=== PATIENT | male | born 1995 | race Caucasian/White ===

== ENCOUNTER 2023-10-27 21:12 | Emergency (ER) | payer MEDICAID, SELFPAY ==
[2023-10-27 21:14] VITALS: BP 122/101; PULSE 91; RESP 18; TEMP 36.6; O2SAT 97; BMI 25.1
--- NOTE | 2023-10-27 21:19 | PC.NURSE ---
Patient was dressed out of street clothes and placed in green paper scrubs. All belongings removed, placed in plastic bags and labeled with patient label.
--- NOTE | 2023-10-27 21:20 | PC.NURSE ---
Suicide precautions set in place: patient placed in cleared room, PSA present with patient, patient dressed out, and all belongings removed from patient.
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
[2023-10-27 21:46] LABS: Add Urine Microscopic? YES; Bacteria Urine TRACE /hpf; Bilirubin Urine Neg (Negative); Blood Urine Neg (Negative); Glucose Urine UA Norm (Normal); Ketones Urine Negative (Negative); Leukocyte Esterase Urine Negative (Negative); Mucus Urine 2+ /hpf; Nitrate Urine Negative (Negative); Protein Urine Trace (Negative); Urine Appearance Clear (CLEAR); Urine Color Yellow (Yellow); Urobilinogen Urine 1 mg/dL (Negative); pH Urine 5 (5-7)
[2023-10-27 21:47] LABS: Add Urine Culture? No
[2023-10-27 21:48] LABS: Amphetamines Screen Urine Positive (Negative); Barbiturates Screen Urine Negative (Negative); Benzodiazepines Screen Urine Positive (Negative); Cocaine Screen Urine Negative (Negative); Opiate Screen Urine Negative (Negative); PCP Screen Urine Negative (Negative); THC Screen Urine Positive (Negative)
[2023-10-27 21:52] LABS: Basophils % 0.4 %; Eosinophils % 0.6 %; Hematocrit 39.2 % (37-53); Lymphocytes # 1.5 10^3/uL (0.8-4.8); Lymphocytes % 30.3 %; Mean Corpuscular HGB Conc 33.7 g/dL (30-55); Mean Corpuscular Hemoglobin 29.9 pg (27-33); Mean Corpuscular Volume 88.9 fl (82-101); Mean Platelet Volume 8.4 fL (7.4-10.4); Monocytes # 0.4 10^3/uL (0.2-0.9); Monocytes % 7.4 %; Neutrophils # 2.99 10^3/uL (1.8-7.7); Neutrophils % 61.1 %; Nucleated Red Blood Cells % 0 %; Platelet Count 240 10^3/cmm (157-399); Red Blood Count 4.41 10^6/uL (3.85-5.65); Red Cell Distribution Width 12.4 % (12.1-15.1); White Blood Count 4.89 10^3/uL (3.29-11.43)
[2023-10-27 21:59] LABS: Alanine Aminotransferase 29 U/L (0-41); Albumin Level 4.3 g/dL (3.5-5.2); Alkaline Phosphatase 61 U/L (40-130); Anion Gap 17.8 (5-19); Aspartate Amino Transferase 35 U/L (0-40); Blood Urea Nitrogen 13 mg/dL (6-20); Calcium 8.5 mg/dL (8.5-10.5); Carbon Dioxide 22 mmol/L (22-29); Chloride 107 mmol/L (98-107); Globulin 2.3 g/dL (1.3-4.6); Glomerular Filtration Rate 135.3 mL/min (90-130); Glucose 108 mg/dL (65-115); Osmolality Calculated 297 mOsm/kg (285-295); Potassium 3.8 mmol/L (3.5-5.1); Salicylate 2.3 mg/dL (3-10); Sodium 143 mmol/L (136-145); Total Bilirubin 0.7 mg/dL (0.15-1.2); Total Protein 6.6 g/dL (6.6-8.7)
[2023-10-27 22:01] LABS: Acetaminophen < 5.0 ug/mL (10-30); Alcohol Level < 10 mg/dL (0-10)
--- NOTE | 2023-10-27 22:06 | PC.NURSE ---
Patient stated to this nurse that he is not suicidal and that he wants to get ahold of Beth. Patient then asked if he could leave. All of this information was relayed to Dr Dill, who told this nurse that unless [facility] wrote out an affidavit to put patient on 96 hour hold, then patient would likely be discharged home.
--- NOTE | 2023-10-27 22:10 | PC.NURSE ---
upon arrival the pt continued to ask for a phone to contact his girlfriend Beth. This nurse informed the pt that he would not be allowed to use the phone to call her. D/T the officer bringing him in for help and stating that if he went back to her house he would be arrested. The pt then wanted to call Miah who did not answer the phone.
== END 2023-10-27 22:26 | disposition home or self-care (01) ==
PROVIDERS: Emergency Provider Emergency Medicine
DX: F19.10 Other psychoactive substance abuse, uncomplicated (principal)
CPT/HCPCS: 80053; 80306; 80307; 81001; 85025; 99283

== ENCOUNTER 2024-03-07 20:02 | Emergency (ER) | payer MEDICAID, SELFPAY ==
[2024-03-07 20:04] VITALS: BP 138/100; PULSE 83; RESP 16; TEMP 36.4; O2SAT 98; BMI 25.1
--- NOTE | 2024-03-07 20:08 | CTR_ITS ---
PROCEDURE INFORMATION: Exam: CT Lumbar Spine Without Contrast Exam date and time: 03/07/2024 8:32 PM Age: 29 years old Clinical indication: Injury or trauma; Fall; Additional info: Back pain TECHNIQUE: Imaging protocol: Computed tomography of the lumbar spine without contrast. Radiation optimization: All CT scans at this facility use at least one of these dose optimization techniques: automated exposure control; mA and/or kV adjustment per patient size (includes targeted exams where dose is matched to clinical indication); or iterative reconstruction. COMPARISON: No relevant prior studies available. RADIATION DOSE METRICS: Total DLP (mGy-cm): 591 FINDINGS: Bones/joints: No acute fracture. Normal alignment. No significant disc bulge or herniation. No severe spinal canal stenosis. No significant neural foraminal narrowing. Soft tissues: Unremarkable. CT/CT lumbar spine wo con* [id number] IMPRESSION: No acute findings.
[2024-03-07 20:14] VITALS: RESP 20
[2024-03-07] MEDS: cyclobenzaprine 10 mg Tablet PO (20:14)
[2024-03-07] MEDS: HYDROmorphone 1 mg/mL INJ 1 mL IVP (20:14)
[2024-03-07] MEDS: dexamethasone 10 mg/mL INJ IVP (20:15)
--- NOTE | 2024-03-07 20:15 | ED_ITS ---
HPI - Fall General: Chief Complaint: Fall Stated Complaint: fall Time Seen by Provider: 03/07/24 20:04 Source: patient Mode of arrival: ambulatory Limitations: no limitations History of Present Illness: 29-year-old male he states he has a hist ory of chronic back pain states he is planning his dog and felt a pop in his back and fell and having worsening back pain since then he states he feels like he is having spasms denies any bowel or bladder incontinence he is able ambulate stated is painful to ambulate rates the pain a 7 out of 10 currently. No history of back surgeries Associated symptoms-after fall: Denies abdominal pain, chest pain, headache(s) or neck pain Review of Systems Const: Denies: fever(s), chills, body aches or change in appetite ENMT: Denies: throat pain or dental pain Card: Denies: chest pain Resp: Denies: dyspnea GI: Denies: abdominal pain, nausea, vomiting or diarrhea : Denies: difficulty urinating Musc: Reports: back pain; Denies: neck pain Skin/Breast: Denies: rash Neuro: Denies: headache(s) Physical Exam Const: COMMON NORMALS: no acute distress, patient oriented x3 and healthy appearing HENMT: COMMON NORMALS: normocephalic and atraumatic HEAD & SCALP: normocephalic and atraumatic Eye: COMMON NORMALS: Equal, round and reactive pupils present and EOMs intact bilaterally PUPIL: Yes Equal, round and reactive pupils present Neck/C-Spine: COMMON NORMALS: full ROM and supple Chest: COMMONS NORMALS: normal inspection of the chest Resp: COMMON NORMALS: normal respiratory effort, No retractions, No use of accessory muscles and clear to auscultation bilaterally AUSCULTATION: clear to auscultation bilaterally Cardio: COMMON NORMALS: regular rate, regular rhythm and No murmurs present (Cardio) RATE: regular rate RHYTHM: regular rhythm Back/Pelvis: OTHER: Paraspinal tenderness over the lumbar spine no midline tenderness no saddle anesthesia Extremity: COMMON NORMALS: normal to inspection and full ROM Neuro: COMMON NORMALS: patient oriented x3, moves all extremities and no focal motor deficits Psych: COMMON NORMALS: mental status grossly normal, Normal thought process present and cooperative THOUGHT PROCESS: Normal thought process present Skin: COMMON NORMALS: no rashes or lesions noted and no wounds GENERAL SKIN EXAM: no rashes or lesions noted Course Vital Signs: Vital signs: Vital Signs Temperature 97.5 F L 03/07/24 20:04 Pulse Rate 83 03/07/24 20:04 Respiratory Rate 20 H 03/07/24 20:14 Blood Pressure 138/100 03/07/24 20:04 Pulse Oximetry 98 03/07/24 20:04 Oxygen Delivery Me thod Room Air 03/07/24 20:04 MDM - Fall Medical Decision Making Patient presents here with lumbar strain his back pain he is much improved after meds he has no signs of cord compression or epidural abscess CT scans normal we will place him on Naprosyn Robaxin he is to follow-up with Dr. Verdugo return if worsening he understands agrees plan Medical Records I reviewed the patient's medical records. Lab Data Radiology Impressions Lumbar Spine CT 03/07/24 20:08 IMPRESSION: No acute findings. All radiology interpretation(s) finalized by discharge Discharge Plan Discharge Patient Disposition: Home Clinical Impression: Lumbar strain Qualifiers: Encounter type: initial encounter Qualified Code(s): S39.012A - Strain of muscle, fascia and tendon of lower back, initial encounter Condition: Stable Prescriptions: New methocarbamol 750 mg tablet 750 mg PO Q6H PRN (Reason: spasms) Qty: 20 0RF Naprosyn 500 mg tablet 500 mg PO BID PRN (Reason: pain) Qty: 20 0RF Discharge Orders: Discharge ED (Routine); Ordered 03/07/24 Ordered By: Kei Garvin Referrals: Shayne Verdugo DO [Physician] - 1-3 days Discharge Diet: Advance as tolerated Discharge Activity: Resume usual activity Patient Instructions: Low Back Strain (ED) Coding Level of Care Code ED Oral And Maxillofacial Surgery Resident for Ashwing Rosie
--- NOTE | 2024-03-09 07:55 | DCPLANNER ---
messaged ortho for er f/u
== END 2024-03-07 22:22 | disposition home or self-care (01) ==
PROVIDERS: Emergency Provider Emergency Medicine
DX: S39.012A Strain of muscle, fascia and tendon of lower back, initial encounter (principal); W19.XXXA Unspecified fall, initial encounter
CPT/HCPCS: 72131; 96374; 96375; 99284; J1100; J1170

== ENCOUNTER 2024-03-19 16:41 | Inpatient (IN) | payer MEDICAID, SELFPAY ==
[2024-03-19] MEDS: LORazepam 1 mg Tablet PO (17:35)
[2024-03-19 18:17] LABS: Basophils % 0.6 %; Eosinophils # 0.2 10^3/uL (0.0-0.8); Eosinophils % 3.4 %; Hematocrit 38.2 % (37-53); Lymphocytes # 2.5 10^3/uL (0.8-4.8); Lymphocytes % 47.8 %; Mean Corpuscular HGB Conc 33.8 g/dL (30-55); Mean Corpuscular Hemoglobin 30.6 pg (27-33); Mean Corpuscular Volume 90.7 fl (82-101); Mean Platelet Volume 8.6 fL (7.4-10.4); Monocytes # 0.4 10^3/uL (0.2-0.9); Monocytes % 6.6 %; Neutrophils % 41.4 %; Nucleated Red Blood Cells % 0 %; Platelet Count 211 10^3/cmm (157-399); Red Blood Count 4.21 10^6/uL (3.85-5.65); White Blood Count 5.31 10^3/uL (3.29-11.43)
[2024-03-19 18:24] VITALS: BP 103/63; PULSE 82; RESP 16; O2SAT 94
[2024-03-19 18:36] LABS: Acetaminophen < 5.0 ug/mL (10-30); Alanine Aminotransferase 18 U/L (0-41); Albumin Level 4.5 g/dL (3.5-5.2); Alcohol Level 39 mg/dL (0-10); Alkaline Phosphatase 50 U/L (40-130); Anion Gap 12.6 (5-19); Aspartate Amino Transferase 15 U/L (0-40); Blood Urea Nitrogen 11 mg/dL (6-20); Carbon Dioxide 27 mmol/L (22-29); Chloride 107 mmol/L (98-107); Creatinine Clr Calc Pharmacy 162.8098; Globulin 2.1 g/dL (1.3-4.6); Glomerular Filtration Rate 134.3 mL/min (90-130); Glucose 88 mg/dL (65-115); Osmolality Calculated 295 mOsm/kg (285-295); Potassium 3.6 mmol/L (3.5-5.1); Salicylate < 0.3 mg/dL (3-10); Sodium 143 mmol/L (136-145); Total Bilirubin 0.6 mg/dL (0.15-1.2); Total Protein 6.6 g/dL (6.6-8.7)
[2024-03-19 18:41] LABS: Amphetamines Screen Urine Positive (Negative); Barbiturates Screen Urine Negative (Negative); Benzodiazepines Screen Urine Negative (Negative); Cocaine Screen Urine Negative (Negative); Opiate Screen Urine Negative (Negative); PCP Screen Urine Negative (Negative); THC Screen Urine Positive (Negative)
--- NOTE | 2024-03-19 18:56 | W.ED.PSYCHS ---
HPI - Psych General: Chief Complaint: Psychiatric Symptoms Stated Complaint: SI Time Seen by Provider: 03/19/24 17:14 Source: patient Mode of arrival: ambulatory Limitations: no limitations History of Present Illness: Patient is a 29-year-old male presenting to the emergency department reporting suicidal ideations that he states he has had for multiple years but are worsening recently. When I ask him if he has a specific plan, he states I am at a point where I would never do anything so I have not actually thought of a plan, just feel like not being alive. He does note that he used to be on medications for many years, however has not been for the past 6 months as he was prescribed those in [place]. He states he was urged to come in by girlfriend today for refill of his medications. At this time he reports that he is extremely anxious, when I ask him why he will not answer. Ultimately he is not the best historian and does not provide much useful history. He does deny any homicidal ideations or any hallucinations at this time. He does not report to me any drug use or significant alcohol use. No specific recent stressful event is reported at this time. He becomes very anxious on further questioning and request something at this time. MD complaint: suicidal ideation Onset (ago): year(s) Duration: getting worse History of same: Yes Relieving factors: none Exacerbating factors: none Associated symptoms: Reports depression and suicidal ideation; Deny auditory hallucinations, visual hallucinations or homicidal ideation Treatments prior to arrival: none If self harm: admits thoughts of self harm Review of Systems General: Reports: 10 or more systems reviewed and unremarkable except in HPI and below Const: Denies: fever(s), chills or fatigue Eyes: Denies: change in vision ENMT: Denies: throat pain, ear or mastoid pain or nasal discharge Card: Denies: chest pain, palpitations, swelling of feet/ankles or lightheadedness Resp: Denies: dyspnea, productive cough or wheezing GI: Denies: abdominal pain, nausea, vomiting, diarrhea or constipation : Denies: flank pain, difficulty urinating, dysuria or urinary frequency Musc: Denies: neck pain, back pain or joint pain Skin/Breast: Denies: rash Neuro: Denies: headache(s), numbness in extremities or weakness in extremities Psych: Reports: anxiety, depression and suicidal ideation; Denies: visual hallucinations, auditory hallucinations, tactile hallucinations or homicidal ideation Physical Exam Const: COMMON NORMALS: no acute distress, patient oriented x3 and no limitations GENERAL APPEARANCE: cooperative, comfortable and well developed ORIENTATION/CONSCIOUSNESS: Yes awake, Yes oriented to person, Yes oriented to place and Yes oriented to time HENMT: COMMON NORMALS: normocephalic, atraumatic and hearing grossly normal bilaterally HEAD & SCALP: normocephalic and atraumatic Eye: COMMON NORMALS: Equal, round and reactive pupils present, EOMs intact bilaterally and conjunctivae normal CONJUNCTIVA: Yes conjunctivae normal PUPIL: Yes Equal, round and reactive pupils present Neck/C-Spine: COMMON NORMALS: full ROM, supple and no JVD Resp: COMMON NORMALS: normal respiratory effort, No retractions, No use of accessory muscles and clear to auscultation bilaterally AUSCULTATION: clear to auscultation bilaterally Cardio: COMMON NORMALS: no JVD, regular rate, regular rhythm, No clicks present (Cardio), No murmurs present (Cardio) and No rub (Cardio) RATE: regular rate RHYTHM: regular rhythm GI: COMMON NORMALS: Normal to inspection, nondistended, normoactive bowel sounds present, Soft to palpation and non-tender AUSCULTATION: Yes normoactive bowel sounds PALPATION: Yes Soft to palpation RECTAL EXAM: Yes deferred Extremity: COMMON NORMALS: normal to inspection, full ROM and capillary refill normal Neuro: COMMON NORMALS: patient oriented x3, moves all extremities, no focal motor deficits and no sensory deficits noted SENSORIUM/ORIENTATION: Yes oriented to person, Yes oriented to place and Yes oriented to time Psych: COMMON NORMALS: Normal thought process present APPEARANCE: Yes grossly normal ATTITUDE: Yes agitated ACTIVITY/MOTOR BEHAVIOR: Yes psychomotor agitation SPEECH: Yes minimal MOOD & AFFECT: Yes anxious and Yes irritable THOUGHT PROCESS: Normal thought process present THOUGHT CONTENT: Yes Suicidality present, No Homicidality present and No Hallucination(s) present ATTENTION/CONCENTRATION: Yes attention grossly intact Skin: COMMON NORMALS: no rashes or lesions noted GENERAL SKIN EXAM: no rashes or lesions noted Course Vital Signs: Vital signs: Vital Signs Pulse Rate 82 03/19/24 18:24 Respiratory Rate 16 03/19/24 18:24 Blood Pressure 103/63 03/19/24 18:24 Pulse Oximetry 94 03/19/24 18:24 MDM - Psych Medical Decision Making Patient arrived for suicidal ideations, reportedly had issues with this for a while and has been out of meds for 6 months. Cleared medically and patient is excepted to neuropsychiatric unit by Dr. Levin. Lab Data 03/19/24 18:02 03/19/24 18:02 Laboratory Results WBC 5.31 10^3/uL (3.29-11.43) 03/19/24 18:02 RBC 4.21 10^6/uL (3.85-5.65) 03/19/24 18:02 Hgb 12.90 g/dL (11.27-16.99) 03/19/24 18:02 Hct 38.2 % (37-53) 03/19/24 18:02 MCV 90.7 fl (82-101) 03/19/24 18:02 MCH 30.6 pg (27-33) 03/19/24 18:02 MCHC 33.8 g/dL (30-55) 03/19/24 18:02 RDW 12.0 % (12.1-15.1) L 03/19/24 18:02 Plt Count 211 10^3/cmm (157-399) 03/19/24 18:02 MPV 8.6 fL (7.4-10.4) 03/19/24 18:02 Neut % (Auto) 41.4 % 03/19/24 18:02 Lymph % (Auto) 47.8 % 03/19/24 18:02 Williams % (Auto) 6.6 % 03/19/24 18:02 Eos % (Auto) 3.4 % 03/19/24 18:02 Baso % (Auto) 0.6 % 03/19/24 18:02 Neut # (Auto) 2.20 10^3/uL (1.8-7.7) 03/19/24 18:02 Lymph # (Auto) 2.5 10^3/uL (0.8-4.8) 03/19/24 18:02 Williams # (Auto) 0.4 10^3/uL (0.2-0.9) 03/19/24 18:02 Eos # (Auto) 0.2 10^3/uL (0.0-0.8) 03/19/24 18:02 Baso # (Auto) 0.0 10^3/uL (0.0-0.1) 03/19/24 18:02 Nucleated RBC % (auto) 0 % 03/19/24 18:02 Nucleated RBCs # 0.0 /100WBC 03/19/24 18:02 Sodium 143 mmol/L (136-145) 03/19/24 18:02 Potassium 3.6 mmol/L (3.5-5.1) 03/19/24 18:02 Chloride 107 mmol/L (98-107) 03/19/24 18:02 Carbon Dioxide 27 mmol/L (22-29) 03/19/24 18:02 Anion Gap 12.6 (5-19) 03/19/24 18:02 BUN 11 mg/dL (6-20) 03/19/24 18:02 Creatinine 0.7 mg/dL (0.7-1.2) 03/19/24 18:02 GFR Calculation 134.3 mL/min (90-130) H 03/19/24 18:02 Glucose 88 mg/dL (65-115) 03/19/24 18:02 Calculated Osmolality 295 mOsm/kg (285-295) 03/19/24 18:02 Calcium 9.0 mg/dL (8.5-10.5) 03/19/24 18:02 Total Bilirubin 0.6 mg/dL (0.15-1.2) 03/19/24 18:02 AST 15 U/L (0-40) 03/19/24 18:02 ALT 18 U/L (0-41) 03/19/24 18:02 Alkaline Phosphatase 50 U/L (40-130) 03/19/24 18:02 Total Protein 6.6 g/dL (6.6-8.7) 03/19/24 18:02 Albumin 4.5 g/dL (3.5-5.2) 03/19/24 18:02 Globulin 2.1 g/dL (1.3-4.6) 03/19/24 18:02 Salicylates < 0.3 mg/dL (3-10) L 03/19/24 18:02 Urine Opiates Screen Negative ng/mL (Negative) 03/19/24 17:11 Acetaminophen < 5.0 ug/mL (10-30) L 03/19/24 18:02 Ur Barbiturates Screen Negative ng/mL (Negative) 03/19/24 17:11 Ur Phencyclidine Scrn Negative ng/mL (Negative) 03/19/24 17:11 Ur Amphetamines Screen Positive ng/mL (Negative) H 03/19/24 17:11 U Benzodiazepines Scrn Negative ng/mL (Negative) 03/19/24 17:11 Urine Cocaine Screen Negative ng/mL (Negative) 03/19/24 17:11 U Marijuana (THC) Screen Positive ng/mL (Negative) H 03/19/24 17:11 Ethyl Alcohol 39 mg/dL (0-10) H 03/19/24 18:02 No radiology studies performed this visit Discharge Plan Discharge Admit Provider: Catracho Gaines Condition: Stable Coding Level of Care Code ED Agriculture Consultant for Aleja Velez
[2024-03-19 22:10] VITALS: BP 119/60; PULSE 82; O2SAT 98
[2024-03-19 22:19] VITALS: BP 127/85; PULSE 84; RESP 18; TEMP 36.7; O2SAT 99
[2024-03-20 06:00] VITALS: BP 118/70; PULSE 93; RESP 18; O2SAT 98
[2024-03-20] MEDS: nicotine 21 mg Patch 1 PATCH TRANSDERMA (09:20)
--- NOTE | 2024-03-20 09:28 | PC.NURSE ---
SITTING UP IN BED, PT IS NOTED TO HAVE INCREASED, ANIMATED, RAPID SPEECH THAT IS PRESSURED. DENIES PAIN. DENIES SI/HI AND AVH AT THIS TIME. RATES ANXIETY 01/27 AND DEPRESSION 09/29. PT WAS OFFERED ANXIETY MEDICATION VISTARIL, BUT PT STATED OH I WANT TO GET THAT ATIVAN. PT DOES REPORT HE AT TIMES HAS DELUSIONAL THINKING DUE TO BEING BIPOLAR. PT STATES I SLEPT GOOD, BEEN SLEEPING SINCE I GOT HERE, THAT ATIVAN WORKS GOOD. PT STATES HIS GOAL FOR THE DAY IS TO GET BACK ON MY MEDS AND GET ME A PRESCRIPTION FOR THAT ATIVAN. PT WAS INFORMED HE WOULD NEED TO TALK TO THE DR. ABOUT STARTING ANY CONTROLLED SUBSTANCES. ALL QUESTIONS ANSWERED AND SUPPORT WAS VOICED.
[2024-03-20] MEDS: hyDROXYzine 25 mg Capsule 50 MG PO ×2 (10:30→18:47)
[2024-03-20 13:12] VITALS: BP 132/88; PULSE 86; RESP 18; TEMP 36.8; O2SAT 100
--- NOTE | 2024-03-20 19:00 | W.PM.NPUH&PS ---
Providers/Chief Complaint Admitting Physician: Catracho Gaines MD Chief Complaint: SI HPI NPU History of Present Illness Harrison Melo is a 29 year old male who presented to the emergency department with complaints of suicidal ideation and worsening depression that he describes as having been present for years. Patient had reported that he had been also struggling with anxiety and requested that he be restarted on medications as he had been without these medications for the past 6 months. Patient was admitted to the neuropsychiatric unit for further evaluation and treatment. Patient endorses a history of rapid cycling bipolar disorder. He had endorsed clear episodes of decreased need for sleep, increased irritability, periods of rapid speech and racing thoughts with increased risk-taking behaviors and high energy since childhood. He states that he had been diagnosed with manic episodes during his preteen years. He had also reported having periods of depressed mood with accompanied hypersomnia, low energy and low motivation that would last for weeks as well. He reports that he has had increased cycling between both these 2 states of mood for the past 6 months. He had reported good success with managing his mood with Trileptal and Seroquel but stated that he had simply not been able to get follow-up with his previous psychiatrist in [place]. He had minimized any use of drugs or alcohol but reports using marijuana since the age of 18. He reports that he has a history of problems with poor impulse control. He denies any history of auditory or visual hallucinations. He does report though having problems with being aggressive and often distrustful with irrational thinking when he is in a manic phase. He had reported having problems with anxiety and states that he struggles with being in large groups. He reports that he is easily frustrated. He did not endorse any history currently of self-injurious behavior. Inpatient psychiatric history: He reports several hospitalizations during his adolescence and states that his most recent inpatient psychiatric hospitalization was in 2022 at [facility]. Outpatient psychiatric history: He had reported a long history of outpatient psychiatric follow-up since his childhood with multiple medication trials including lithium, Adderall, Risperdal, Depakote, Seroquel, Trileptal, and Abilify. He had reported having previous suicidal thoughts and reported having spent time in residential treatment facilities prior to the age of 19 Substance abuse history: He had reported previously using alcohol but denies any history of alcohol abuse. No history of alcohol-related withdrawals. He reports that he has been using marijuana on a regular basis since the age of 18. He reports no history of substance abuse rehabilitation. Medical history: None reported Surgical history: Tonsillectomy, ear tube placements bilaterally Allergies: [place], penicillin Legal history: Reports having history of having spent brief time in nursing home for various reasons and having been placed in juvenile justice facilities prior to the age of 19. He reports no legal issues currently. history: None Family psychiatric history: Father had been diagnosed with bipolar disorder per patient. 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 Social history: Patient was born in [facility]. He had reported that he had minimal contact with his father and reports that his mother had raised him along with his 3 sisters including 1 fraternal twin but states that he was placed in foster care at the age of 10 several times due to allegations of neglect. He had reported having an unhappy childhood but did not report any clear history of trauma. He had reported having significant behavioral problems and states that he had attempted to harm family member during his childhood and been diagnosed with problems with impulse control and edda. He reports that he never earned his GED. 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 He lives in [facility] [place]. He has been never legally and has no children. He lives with his girlfriend and reports that she is a source of support but reports that she has been also struggling with her own mood issues. Meds NPU Home Medications Medication Instructions Recorded Confirmed Last Taken Type No Known Home Medications 03/20/24 03/20/24 Unknown History Allergies Allergy/AdvReac Type Severity Reaction Status Date / Time lithium Allergy Unknown Verified 03/19/24 16:58 Penicillins Allergy Unknown Verified 03/19/24 16:58 Mental Status Exam MSE Comments: The patient is a casually dressed white male who appeared his stated age. He was alert and oriented to person place time and situation. His gait appeared within normal limits. His hygiene was poor. His speech was normal in regards to rate rhythm and prosody. His thought process was linear logical and goal-directed. His thought content showed no evidence of active homicidal ideation. He had endorsed having recurring suicidal ideation with an unclear plan. He denied any auditory or visual hallucinations. He did not appear to be responding to internal stimuli. There was no clear evidence of delusional thinking. His attention span appeared poor. His impulse control is limited. His insight and judgment are poor. His recent remote memory appeared grossly intact. There is no clear evidence of paranoia. Vitals/I&O/Wt Last Vital Signs Temp 98.2 F 03/20/24 13:12 Pulse 86 03/20/24 13:12 Resp 18 03/20/24 13:12 BP 132/88 03/20/24 13:12 Pulse Ox 100 03/20/24 13:12 O2 Del Method Room Air 03/19/24 22:17 Weight last 48 hrs Weight 77.111 kg Data NPU 03/19/24 18:02 03/19/24 18:02 A&P Assessment and plan (1) Severe mixed bipolar I disorder w/psychotic features, mood-congruent: Plan 29-year-old male with a history of bipolar disorder type I currently without his medications endorsing suicidal ideation and desire to resume his medications currently not receiving any outpatient follow-up. #1.? Engage patient in individual milieu and group therapy.? #2? Encourage sober living treatment after discharge at the highest level of care to which he is willing to commit. #3??? Restart Trileptal 300mg bid, and Seroquel 200mg at night as patient reported improved mood with these medications. #4?? TO-15 minute checks? #5?? Will attempt to gather collateral information Involuntary Hold Information 96 Hour Hold: 96 Hour Involuntary Admission: No Attestations NPU Medical Necessity Statement*: Inpatient hospitalization is medically necessary and deemed to ?be ?the clinically appropriate intervention ?at this time.? We will monitor/initiate medications and make changes as indicated.? The patient will be in the hospital for over 2 midnights.? The patient?s likely length of stay 3-5 days. Coding Level of Care Code Acute Code for Chg Fwd Diagnoses Severe mixed bipolar I disorder w/psychotic features, mood-congruent F31.64
[2024-03-20] MEDS: quetiapine 100 mg Tablet 200 MG PO (20:38)
[2024-03-20] MEDS: OXcarbazepine 300 mg Tablet PO (20:39)
[2024-03-20 22:00] VITALS: BP 111/66; PULSE 61; RESP 16; O2SAT 98
[2024-03-21 06:00] VITALS: BP 114/71; PULSE 60; RESP 16; O2SAT 99
[2024-03-21] MEDS: OXcarbazepine 300 mg Tablet PO (09:33)
--- NOTE | 2024-03-21 13:41 | W.PM.NPUDCS ---
Diagnoses at Discharge Discharge Diagnosis (1) Severe mixed bipolar I disorder w/psychotic features, mood-congruent: Status: Acute Reason for Visit Reason for Visit: SI Brief History: History of Present Illness Harrison Melo is a 29 year old male who presented to the emergency department with complaints of suicidal ideation and worsening depression that he describes as having been present for years. Patient had reported that he had been also struggling with anxiety and requested that he be restarted on medications as he had been without these medications for the past 6 months. Patient was admitted to the neuropsychiatric unit for further evaluation and treatment. Patient endorses a history of rapid cycling bipolar disorder. He had endorsed clear episodes of decreased need for sleep, increased irritability, periods of rapid speech and racing thoughts with increased risk-taking behaviors and high energy since childhood. He states that he had been diagnosed with manic episodes during his preteen years. He had also reported having periods of depressed mood with accompanied hypersomnia, low energy and low motivation that would last for weeks as well. He reports that he has had increased cycling between both these 2 states of mood for the past 6 months. He had reported good success with managing his mood with Trileptal and Seroquel but stated that he had simply not been able to get follow-up with his previous psychiatrist in [place]. He had minimized any use of drugs or alcohol but reports using marijuana since the age of 18. He reports that he has a history of problems with poor impulse control. He denies any history of auditory or visual hallucinations. He does report though having problems with being aggressive and often distrustful with irrational thinking when he is in a manic phase. He had reported having problems with anxiety and states that he struggles with being in large groups. He reports that he is easily frustrated. He did not endorse any history currently of self-injurious behavior. Inpatient psychiatric history: He reports several hospitalizations during his adolescence and states that his most recent inpatient psychiatric hospitalization was in [address] [facility]. Outpatient psychiatric history: He had reported a long history of outpatient psychiatric follow-up since his childhood with multiple medication trials including lithium, Adderall, Risperdal, Depakote, Seroquel, Trileptal, and Abilify. He had reported having previous suicidal thoughts and reported having spent time in residential treatment facilities prior to the age of 19 Substance abuse history: He had reported previously using alcohol but denies any history of alcohol abuse. No history of alcohol-related withdrawals. He reports that he has been using marijuana on a regular basis since the age of 18. He reports no history of substance abuse rehabilitation. Medical history: None reported Surgical history: Tonsillectomy, ear tube placements bilaterally Allergies: [place], penicillin Legal history: Reports having history of having spent brief time in retirement for various reasons and having been placed in juvenile justice facilities prior to the age of 19. He reports no legal issues currently. history: None Family psychiatric history: Father had been diagnosed with bipolar disorder per patient. 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 Social history: Patient was born in [facility]. He had reported that he had minimal contact with his father and reports that his mother had raised him along with his 3 sisters including 1 fraternal twin but states that he was placed in foster care at the age of 10 several times due to allegations of neglect. He had reported having an unhappy childhood but did not report any clear history of trauma. He had reported having significant behavioral problems and states that he had attempted to harm family member during his childhood and been diagnosed with problems with impulse control and edda. He reports that he never earned his GED. 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 He lives in [facility]. He has been never legally and has no children. He lives with his girlfriend and reports that she is a source of support but reports that she has been also struggling with her own mood issues. Hospital Course Hospital Course During the hospitalization, the patient had routine laboratory studies which were within normal limits except for a few outliers.? Additionally, there was a general medical evaluation which was also within normal limits and revealed no new acute processes. ?At the time of discharge, lethality was denied and psychosis was resolving.? Mood and anxiety were well managed.? The patient endorsed a plan to avoid all drugs of abuse and follow up with the aftercare recommendations of the treatment team.? The patient was evaluated and deemed to be absent credible lethality and had achieved the maximum benefit from an inpatient hospitalization, and so was discharged. Patient was restarted on his previous outpatient medications to treat bipolar disorder including Seroquel at 200 mg at night and Trileptal at 300 mg twice a day. He was agreeable to follow-up with a psychiatrist as well on the outpatient basis. Involuntary Hold Information 96 Hour Hold: 96 Hour Involuntary Admission: No Mental Status Exam MSE Comments: The patient is a casually dressed white male who appeared his stated age. He was alert and oriented to person place time and situation. His gait appeared within normal limits. His hygiene was improved. His speech was normal in regards to rate rhythm and prosody. His thought process was linear logical and goal-directed. His thought content showed no evidence of active homicidal ideation or suicidal ideation on discharge. He denied any auditory or visual hallucinations. He did not appear to be responding to internal stimuli. There was no clear evidence of delusional thinking. His attention span appeared fair. His impulse control appeared fair. His insight and judgment are poor. His recent remote memory appeared grossly intact. There is no clear evidence of paranoia. Discharge Data Studies Completed and Pending: Laboratory Results WBC 5.31 10^3/uL (3.2 9-11.43) 03/19/24 18:02 RBC 4.21 10^6/uL (3.8 5-5.65) 03/19/24 18:02 Hgb 12.90 g/dL (11.27 -16.99) 03/19/24 18:02 Hct 38.2 % (37-53) 03/19/24 18:02 MCV 90.7 fl (82-101) 03/19/24 18:02 MCH 30.6 pg (27-33) 03/19/24 18:02 MCHC 33.8 g/dL (30-55) 03/19/24 18:02 RDW 12.0 % (12.1-15.1 ) L 03/19/24 18:02 Plt Count 211 10^3/cmm (157 -399) 03/19/24 18:02 MPV 8.6 fL (7.4-10.4) 03/19/24 18:02 Neut % (Auto) 41.4 % 03/19/24 18:02 Lymph % (Auto) 47.8 % 03/19/24 18:02 [place] % (Auto) 6.6 % 03/19/24 18:02 Eos % (Auto) 3.4 % 03/19/24 18:02 Baso % (Auto) 0.6 % 03/19/24 18:02 Neut # (Auto) 2.20 10^3/uL (1.8 -7.7) 03/19/24 18:02 Lymph # (Auto) 2.5 10^3/uL (0.8- 4.8) 03/19/24 18:02 [place]comb # (Auto) 0.4 10^3/uL (0.2- 0.9) 03/19/24 18:02 Eos # (Auto) 0.2 10^3/uL (0.0- 0.8) 03/19/24 18:02 Baso # (Auto) 0.0 10^3/uL (0.0- 0.1) 03/19/24 18:02 Nucleated RBC % (a uto) 0 % 03/19/24 18:02 Nucleated RBCs # 0.0 /100WBC 03/19/24 18:02 Sodium 143 mmol/L (136-1 45) 03/19/24 18:02 Potassium 3.6 mmol/L (3.5-5 .1) 03/19/24 18:02 Chloride 107 mmol/L (98-10 7) 03/19/24 18:02 Carbon Dioxide 27 mmol/L (22-29) 03/19/24 18:02 Anion Gap 12.6 (5-19) 03/19/24 18:02 BUN 11 mg/dL (6-20) 03/19/24 18:02 Creatinine 0.7 mg/dL (0.7-1. 2) 03/19/24 18:02 GFR Calculation 134.3 mL/min (90- 130) H 03/19/24 18:02 Glucose 88 mg/dL (65-115) 03/19/24 18:02 Calculated Osmolal ity 295 mOsm/kg (285- 295) 03/19/24 18:02 Calcium 9.0 mg/dL (8.5-10 .5) 03/19/24 18:02 Total Bilirubin 0.6 mg/dL (0.15-1 .2) 03/19/24 18:02 AST 15 U/L (0-40) 03/19/24 18:02 ALT 18 U/L (0-41) 03/19/24 18:02 Alkaline Phosphata se 50 U/L (40-130) 03/19/24 18:02 Total Protein 6.6 g/dL (6.6-8.7 ) 03/19/24 18:02 Albumin 4.5 g/dL (3.5-5.2 ) 03/19/24 18:02 Globulin 2.1 g/dL (1.3-4.6 ) 03/19/24 18:02 Salicylates < 0.3 mg/dL (3-10 ) L 03/19/24 18:02 Urine Opiates Scre en Negative ng/mL (N egative) 03/19/24 17:11 Acetaminophen < 5.0 ug/mL (10-3 0) L 03/19/24 18:02 Ur Barbiturates Sc reen Negative ng/mL (N egative) 03/19/24 17:11 Ur Phencyclidine S crn Negative ng/mL (N egative) 03/19/24 17:11 Ur Amphetamines Sc reen Positive ng/mL (N egative) H 03/19/24 17:11 U Benzodiazepines Scrn Negative ng/mL (N egative) 03/19/24 17:11 Urine Cocaine Scre en Negative ng/mL (N egative) 03/19/24 17:11 U Marijuana (THC) Screen Positive ng/mL (N egative) H 03/19/24 17:11 Ethyl Alcohol 39 mg/dL (0-10) H 03/19/24 18:02 Vitals: Last Vital Signs Temp 98.2 F 03/20/24 13:12 Pulse 60 03/21/24 06:00 Resp 16 03/21/24 06:00 BP 114/71 03/21/24 06:00 Pulse Ox 99 03/21/24 06:00 O2 Del Method Room Air 03/21/24 06:00 Discharge Plan Discharge Patient Disposition: Home Condition: Stable Prescriptions: New quetiapine 200 mg tablet 200 mg PO BEDTIME 30 Days Qty: 30 1RF oxcarbazepine 300 mg Tablet 300 mg PO BID 30 Days Qty: 60 1RF Discharge Orders: Discharge Order (Routine); Ordered 03/21/24 Ordered By: Catracho Gaines Referrals: [facility] [Other] [facility] [Outside] - 03/27/24 9:30 am (Initial appointment with Safia SteelPiper Artis FNP [Nurse Practitioner] - 03/28/24 1:30 pm (Establish care/hospital follow up. ) Discharge Diet: Usual diet Discharge Activity: Resume usual activity Patient Instructions: Quetiapine (By mouth), Oxcarbazepine (By mouth), Bipolar Disorder (DC), Opioid Safety Discharge Attestations NPU Time Spent in Discharge Care*: less than 30 min Specific Discharge Activities: Specific discharge activities: educating patient and discussing with employment case manager/social workers/dc planners Coding Level of Care Code Acute Code for Chg Fwd Diagnoses Severe mixed bipolar I disorder w/psychotic features, mood-congruent F31.64
[2024-03-21 14:54] VITALS: BP 114/71; PULSE 60; RESP 16; O2SAT 99
== END 2024-03-21 16:15 | disposition home or self-care (01) | DRG 885 ==
LOC: ER 18:56 → NP 21:05
PROVIDERS: Admitting Provider Psychiatry & Neurology Psychiatry; Emergency Provider Physician Assistant; Visit Provider Psychiatry & Neurology Psychiatry
DX: F31.64 Bipolar disorder, current episode mixed, severe, with psychotic features (principal); R45.851 Suicidal ideations; F12.90 Cannabis use, unspecified, uncomplicated; Z81.8 Family history of other mental and behavioral disorders; Z62.812 Personal history of neglect in childhood
CPT/HCPCS: 36415; 80053; 80306; 80307; 85025; 97150; 97165; 99285